=== PATIENT | female | born 1960 | race American Indian/Alaskan Native ===

== ENCOUNTER 2016-07-05 16:09 | Emergency (ER) | payer MEDICAID, OTHER ==
[2016-07-05 17:37] LABS: Anion Gap 20 mmol/L; BUN/Creatinine Ratio 17.14; Blood Urea Nitrogen 12 mg/dL (7-17); Calcium 9.1 mg/dL (8.4-10.2); Carbon Dioxide 25 mmol/L (22-30); Glucose 465 mg/dL (65-100); Potassium 4.1 mmol/L (3.6-5.0); Sodium 137 mmol/L (137-145)
[2016-07-05 17:43] LABS: Basophils % (Auto) 0.4 % (0.0-1.8); Eosinophils % (Auto) 2.4 % (0.0-4.3); Hematocrit 41.3 % (30.3-42.9); Hemoglobin 13.7 gm/dl (10.1-14.3); Mean Corpuscular HGB Conc 33 % (30-34); Mean Corpuscular Hemoglobin 30 pg (28-32); Mean Corpuscular Volume 91 fl (79-97); Platelet Count 269 K/mm3 (140-440); Red Blood Count 4.57 M/mm3 (3.65-5.03); Red Cell Distribution Width 12.7 % (13.2-15.2); White Blood Count 7.9 K/mm3 (4.5-11.0)
[2016-07-05 17:49] LABS: Bilirubin,Urine NEG (Negative); Blood,Urine NEG (Negative); Ketones,Urine NEG (Negative); Leukocyte Esterase,Urine NEG (Negative); Mucus,Urine FEW /HPF; Nitrite,Urine NEG (Negative); Protein,Urine <15 mg/dL mg/dL (Negative); Urobilinogen,Urine < 2.0 mg/dL (<2.0)
[2016-07-05] MEDS ORDERED: NACL 0.9% 1000 ML 1,000 ML IV ONE (21:57)
[2016-07-05] MEDS ORDERED: TYLENOL #3 PO ONE (21:58)
--- NOTE | 2016-07-05 21:58 | Emergency Department Report ---
ED General Adult HPI - General Chief complaint: Wound/Laceration Stated complaint: SPIDER BITE ON RIGHT LEG Time Seen by Provider: 07/05/16 21:47 Source: patient, RN notes reviewed Mode of arrival: Ambulatory Limitations: No Limitations - History of Present Illness Initial comments: Primary care Dr.: Dr. Mansoor Vyas Past medical history: Diabetes, hypertension, neuropathy. This is a 56-year-old female. She is previously unknown to me. She presents to the ER with right anterior perez erythema. This has been present for a day or so. Patient is on day 2 of antibiotics; Bactrim. She indicates she has taken 3 doses. No fevers, chills, chest pain, shortness of breath, nausea, vomiting, diarrhea. Found to be incidentally hyperglycemic in the ER. Laboratory studies indicate hyperglycemia without an anion gap acidosis. Laboratory studies otherwise unremarkable. -: Gradual Location: right, lower extremity Improves with: none Worsens with: none Associated Symptoms: denies: confusion, chest pain, cough, diaphoresis, fever/ chills, headaches, loss of appetite, malaise, nausea/vomiting, shortness of breath, syncope, weakness - Related Data Home Medications Medication Instructions Recorded Confirmed Last Taken HYDROcodone/APAP 7.5-325 [[place] 1 each PO Q6HR PRN 09/08/15 09/08/15 1 Day Ago 7.5/325] Insulin Detemir [Levemir VIAL] 60 unit SQ QHS 09/08/15 09/08/15 1 Day Ago Insulin NPH/Regular [Novolin 70/30] 35 unit SQ BIDDIAB 09/08/15 09/08/15 Unknown Lisinopril/Hydrochlorothiazide 1 tab PO QDAY 09/08/15 09/08/15 1 Day Ago [Zestoretic 20-12.5 mg] Lovastatin [Altoprev] 10 mg PO QPM 09/08/15 09/08/15 1 Day Ago glipiZIDE [Glucotrol] 5 mg PO QDAY 09/08/15 09/08/15 1 Day Ago metFORMIN [Glucophage] 500 mg PO BID 09/08/15 09/08/15 1 Day Ago Allergies Allergy/AdvReac Type Severity Reaction Status Date / Time No Known Allergies Allergy Verified 09/08/15 08:07 ED Review of Systems ROS: Stated complaint: SPIDER BITE ON RIGHT LEG Other details as noted in HPI Constitutional: denies: fever Eyes: denies: vision change ENT: denies: epistaxis Respiratory: denies: cough Cardiovascular: denies: chest pain Gastrointestinal: denies: abdominal pain Genitourinary: as per HPI. denies: dysuria Musculoskeletal: arthralgia Skin: lesions Neurological: denies: weakness Psychiatric: anxiety ED Past Medical Hx - Past Medical History Hx Hypertension: Yes Hx Diabetes: Yes (Insulin dependent) - Surgical History Additional Surgical History: 2 C-sections - Social History Smoking Status: Never Smoker Substance Use Type: None - Medications Home Medications: Home Medications Medication Instructions Recorded Confirmed Last Taken Type HYDROcodone/APAP 7.5-325 [[place] 1 each PO Q6HR PRN 09/08/15 09/08/15 1 Day Ago History 7.5/325] Insulin Detemir [Levemir VIAL] 60 unit SQ QHS 09/08/15 09/08/15 1 Day Ago History Insulin NPH/Regular [Novolin 70/30] 35 unit SQ BIDDIAB 09/08/15 09/08/15 Unknown History Lisinopril/Hydrochlorothiazide 1 tab PO QDAY 09/08/15 09/08/15 1 Day Ago History [Zestoretic 20-12.5 mg] Lovastatin [Altoprev] 10 mg PO QPM 09/08/15 09/08/15 1 Day Ago History glipiZIDE [Glucotrol] 5 mg PO QDAY 09/08/15 09/08/15 1 Day Ago History metFORMIN [Glucophage] 500 mg PO BID 09/08/15 09/08/15 1 Day Ago History ED Physical Exam - General Limitations: No Limitations General appearance: alert, in no apparent distress - Head Head exam: Present: atraumatic, normocephalic - Eye Eye exam: Present: normal appearance, EOMI. Absent: nystagmus - ENT ENT exam: Present: normal exam, normal orophraynx, mucous membranes moist, normal external ear exam - Neck Neck exam: Present: normal inspection, full ROM. Absent: tenderness, meningismus - Respiratory Respiratory exam: Present: normal lung sounds bilaterally. Absent: respiratory distress, wheezes, rales, rhonchi, stridor, chest wall tenderness - Cardiovascular Cardiovascular Exam: Present: regular rate, normal rhythm, normal heart sounds. Absent: bradycardia, tachycardia, irregular rhythm, systolic murmur, diastolic murmur, rubs, gallop - GI/Abdominal GI/Abdominal exam: Present: soft, normal bowel sounds. Absent: distended, tenderness, guarding, rebound, rigid, pulsatile mass - Extremities Exam Extremities exam: Present: full ROM, tenderness (on the right mid anterior perez , there is a small area of skin excoriation, approximately 2 cm, with a 1 cm ring of surrounding erythema. There is no fluctuance, there is induration. There is no streaking. The compartments are soft. 2+ pulses are noted in 4 extremities.), normal capillary refill. Absent: pedal edema, joint swelling, calf tenderness - Back Exam Back exam: Present: normal inspection, full ROM. Absent: tenderness, CVA tenderness (R), CVA tenderness (L), muscle spasm, paraspinal tenderness, vertebral tenderness - Neurological Exam Neurological exam: Present: alert, oriented X3, normal gait, other (Extraocular movements intact. Tongue midline. No facial droop. Facial sensation intact to light touch in the V1, V2, V3 distribution bilaterally. 5 and 5 strength in 4 extremities.. Sensation is intact to light touch in 4 extremities.). Absent : motor sensory deficit - Psychiatric Psychiatric exam: Present: normal affect, normal mood - Skin Skin exam: Present: rash, erythema ED Course Vital Signs 07/05/16 07/05/16 07/05/16 16:33 23:06 23:15 Temperature 98.5 F 98.7 F Pulse Rate 107 H 87 Respiratory 16 18 18 Rate Blood Pressure 141/85 Blood Pressure 160/94 [Left] O2 Sat by Pulse 100 100 Oximetry - Reevaluation(s) Reevaluation #1: 07/05/16 22:48 differential diagnosis: Cellulitis, Patient ordered for IV fluids and insulin. Accu-Chek decreased on its own. Insulin held. Patient suitable for discharge at this time. 07/05/16 23:24 ED Medical Decision Making - Lab Data Result diagrams: 07/05/16 17:05 07/05/16 17:05 Vital Signs 07/05/16 16:33 Temperature 98.5 F Pulse Rate 107 H Respiratory 16 Rate Blood Pressure 141/85 O2 Sat by Pulse 100 Oximetry Lab Results 07/05/16 07/05/16 07/05/16 Range/Units 16:45 17:00 17:05 WBC 7.9 (4.5-11.0) K/mm3 RBC 4.57 (3.65-5.03) M/mm3 Hgb 13.7 (10.1-14.3) gm/dl Hct 41.3 (30.3-42.9) % MCV 91 (79-97) fl MCH 30 (28-32) pg MCHC 33 (30-34) % RDW 12.7 L (13.2-15.2) % Plt Count 269 (140-440) K/mm3 Lymph % (Auto) 26.8 (13.4-35.0) % Amelia % (Auto) 8.8 H (0.0-7.3) % Eos % (Auto) 2.4 (0.0-4.3) % Baso % (Auto) 0.4 (0.0-1.8) % Lymph # 2.1 (1.2-5.4) K/mm3 Amelia # 0.7 (0.0-0.8) K/mm3 Eos # 0.2 (0.0-0.4) K/mm3 Baso # 0.0 (0.0-0.1) K/mm3 Seg Neutrophils % 61.6 (40.0-70.0) % Seg Neutrophils # 4.9 (1.8-7.7) K/mm3 VBG pH (7.320-7.420) Sodium (137-145) mmol/L Potassium (3.6-5.0) mmol/L Chloride (98-107) mmol/L Carbon Dioxide (22-30) mmol/L Anion Gap mmol/L BUN (7-17) mg/dL Creatinine (0.7-1.2) mg/dL Estimated GFR ml/min BUN/Creatinine Ratio % Glucose (65-100) mg/dL POC Glucose > 500 H (70-105) Calcium (8.4-10.2) mg/dL Urine Color Yellow (Yellow) Urine Turbidity Clear (Clear) Urine pH 5.0 (5.0-7.0) Ur Specific [place] 1.028 (1.003-1.030) Urine Protein <15 mg/dl (Negative) mg/dL Urine Glucose (UA) >=500 (Negative) mg/dL Urine Ketones Neg (Negative) mg/dL Urine Blood Neg (Negative) Urine Nitrite Neg (Negative) Urine Bilirubin Neg (Negative) Urine Urobilinogen < 2.0 (<2.0) mg/dL Ur Leukocyte Esterase Neg (Negative) Urine WBC (Auto) 4.0 (0.0-6.0) /HPF Urine RBC (Auto) 3.0 (0.0-6.0) /HPF U Epithel Cells (Auto) 7.0 (0-13.0) /HPF Urine Mucus Few /HPF 07/05/16 07/05/16 Range/Units 17:05 17:05 WBC (4.5-11.0) K/mm3 RBC (3.65-5.03) M/mm3 Hgb (10.1-14.3) gm/dl Hct (30.3-42.9) % MCV (79-97) fl MCH (28-32) pg MCHC (30-34) % RDW (13.2-15.2) % Plt Count (140-440) K/mm3 Lymph % (Auto) (13.4-35.0) % [place] % (Auto) (0.0-7.3) % Eos % (Auto) (0.0-4.3) % Baso % (Auto) (0.0-1.8) % Lymph # (1.2-5.4) K/mm3 Amelia # (0.0-0.8) K/mm3 Eos # (0.0-0.4) K/mm3 Baso # (0.0-0.1) K/mm3 Seg Neutrophils % (40.0-70.0) % Seg Neutrophils # (1.8-7.7) K/mm3 VBG pH 7.370 (7.320-7.420) Sodium 137 (137-145) mmol/L Potassium 4.1 (3.6-5.0) mmol/L Chloride 96.0 L (98-107) mmol/L Carbon Dioxide 25 (22-30) mmol/L Anion Gap 20 mmol/L BUN 12 (7-17) mg/dL Creatinine 0.7 (0.7-1.2) mg/dL Estimated GFR > 60 ml/min BUN/Creatinine Ratio 17.14 % Glucose 465 H (65-100) mg/dL POC Glucose (70-105) Calcium 9.1 (8.4-10.2) mg/dL Urine Color (Yellow) Urine Turbidity (Clear) Urine pH (5.0-7.0) Ur Specific [place] (1.003-1.030) Urine Protein (Negative) mg/dL Urine Glucose (UA) (Negative) mg/dL Urine Ketones (Negative) mg/dL Urine Blood (Negative) Urine Nitrite (Negative) Urine Bilirubin (Negative) Urine Urobilinogen (<2.0) mg/dL Ur Leukocyte Esterase (Negative) Urine WBC (Auto) (0.0-6.0) /HPF Urine RBC (Auto) (0.0-6.0) /HPF U Epithel Cells (Auto) (0-13.0) /HPF Urine Mucus /HPF - Medical Decision Making Differential diagnosis: Cellulitis, incidental hyperglycemia Assessment and plan: 56-year-old female with small area of cellulitis, and hyperglycemia. Laboratory studies not consistent with anion gap acidosis. Would not consider the patient to have treatment failure as she has only received 3 doses of antibiotic therapy. She is on a seven-day course of antibiotics. At this point in time, she does not require incision and drainage. The patient is instructed to continue a diet that adheres to the [place] [employer] diet. She is instructed to continue her current outpatient medications. She can continue outpatient antibiotics. She she will follow up in 3-4 days for a wound check. I will also refer her to the local wound Center. Her tachycardia has resolved at the time of discharge. Critical care attestation.: If time is entered above; I have spent that time in minutes in the direct care of this critically ill patient, excluding procedure time. ED Disposition Clinical Impression: Hyperglycemia, Cellulitis Disposition: DISCHARGED TO HOME OR SELFCARE Is pt being admited?: No Does the pt Need Aspirin: No Condition: Stable Instructions: Cellulitis (ED), Diabetic Hyperglycemia (ED) Additional Instructions: Continue current outpatient medications. Follow up with your medical professional within 3-4 days for a wound recheck. I recommend that you adhere to a diet that is consistent with the [place] [employer] recommendations. Long-term complications of hyperglycemia/elevated blood sugar include stroke, heart attack, disability, paralysis. At this point in time, the right lower extremity skin infection does not require incision and drainage or hospitalization. If you develops worsening redness, streaking, severe pain, fevers, chills, chest pain, shortness of breath, confusion, return to the ER right away. Otherwise, follow-up with your primary care doctor within 3-4 days for wound check. Referrals: SERENA VYAS MD [Primary Care Provider] - 3-5 Days [facility] [Outside] - 3-5 Days
[2016-07-05 23:15] VITALS: BP 160/94
== END 2016-07-06 01:09 | disposition home or self-care (01) ==
LOC: ED 16:09
DX: L03.115 Cellulitis of right lower limb (principal); I10 Essential (primary) hypertension; E11.65 Type 2 diabetes mellitus with hyperglycemia; Z79.4 Long term (current) use of insulin
CPT/HCPCS: 36415; 80048; 81001; 82805; 82962; 85025; 96360; 99284; J7030

== ENCOUNTER 2016-07-15 08:21 | Outpatient (CLI) | payer MEDICAID ==
[2016-07-15] MEDS ORDERED: XYLOCAINE TOPICAL 4% TP ONE ×2 (09:26→10:04)
[2016-07-15] MEDS ORDERED: SANTYL TP ONE (10:13)
[2016-07-15] MEDS ORDERED: SANTYL TP PRN (16:24)
== END 2016-07-15 08:22 | disposition home or self-care (01) ==
LOC: WOUND 08:21
PROVIDERS: ATTEND Internal Medicine
DX: E11.622 Type 2 diabetes mellitus with other skin ulcer (principal); L97.811 Non-pressure chronic ulcer of other part of right lower leg limited to breakdown of skin; E11.40 Type 2 diabetes mellitus with diabetic neuropathy, unspecified; J44.9 Chronic obstructive pulmonary disease, unspecified; K21.0 Gastro-esophageal reflux disease with esophagitis; I10 Essential (primary) hypertension
CPT/HCPCS: 82962; G0463; 99215

== ENCOUNTER 2016-07-22 09:10 | Outpatient (CLI) | payer MEDICAID ==
[2016-07-22] MEDS ORDERED: XYLOCAINE TOPICAL 2% TP ONE (09:29)
[2016-07-22] MEDS ORDERED: XYLOCAINE TOPICAL 2% ONE (09:30)
[2016-07-22] MEDS ORDERED: XYLOCAINE 1% 20 mL ONE (09:51)
[2016-07-22] MEDS ORDERED: SANTYL TP ONE (10:49)
[2016-07-22] MEDS ORDERED: XYLOCAINE 1% 20 mL INFILTRATI ONE (13:45)
== END 2016-07-22 09:11 | disposition home or self-care (01) ==
LOC: WOUND 09:10
PROVIDERS: ATTEND Internal Medicine
DX: E11.622 Type 2 diabetes mellitus with other skin ulcer (principal); L97.811 Non-pressure chronic ulcer of other part of right lower leg limited to breakdown of skin; E11.40 Type 2 diabetes mellitus with diabetic neuropathy, unspecified; K21.0 Gastro-esophageal reflux disease with esophagitis; J44.9 Chronic obstructive pulmonary disease, unspecified; I10 Essential (primary) hypertension

== ENCOUNTER 2016-07-29 09:29 | Outpatient (CLI) | payer MEDICAID ==
[2016-07-29] MEDS ORDERED: XYLOCAINE TOPICAL 4% TP ONE (10:03)
[2016-07-29] MEDS ORDERED: XYLOCAINE 2%/ EPI 1:200,000 INFILTRATI ONE (10:31)
[2016-07-29] MEDS ORDERED: SANTYL TP ONE (10:56)
== END 2016-07-29 09:30 | disposition home or self-care (01) ==
LOC: WOUND 09:29
PROVIDERS: ATTEND Internal Medicine
DX: E11.622 Type 2 diabetes mellitus with other skin ulcer (principal); L97.811 Non-pressure chronic ulcer of other part of right lower leg limited to breakdown of skin; E11.40 Type 2 diabetes mellitus with diabetic neuropathy, unspecified; K21.0 Gastro-esophageal reflux disease with esophagitis; J44.9 Chronic obstructive pulmonary disease, unspecified; I10 Essential (primary) hypertension

== ENCOUNTER 2016-08-05 09:34 | Outpatient (CLI) | payer MEDICAID ==
[2016-08-05] MEDS ORDERED: XYLOCAINE TOPICAL 4% TP ONE (10:45)
[2016-08-05] MEDS ORDERED: SANTYL TP ONE ×2 (11:12→11:21)
== END 2016-08-05 09:35 | disposition home or self-care (01) ==
LOC: WOUND 09:34
PROVIDERS: ATTEND Internal Medicine
DX: E11.622 Type 2 diabetes mellitus with other skin ulcer (principal); L97.811 Non-pressure chronic ulcer of other part of right lower leg limited to breakdown of skin; E11.40 Type 2 diabetes mellitus with diabetic neuropathy, unspecified; K21.0 Gastro-esophageal reflux disease with esophagitis; J44.9 Chronic obstructive pulmonary disease, unspecified; I10 Essential (primary) hypertension
CPT/HCPCS: 99214; G0463

== ENCOUNTER 2016-08-12 13:00 | Outpatient (CLI) | payer MEDICAID ==
[2016-08-12] MEDS ORDERED: XYLOCAINE TOPICAL 4% TP ONE ×2 (13:22→13:41)
[2016-08-12] MEDS ORDERED: SANTYL TP ONE ×2 (14:19→14:33)
== END 2016-08-12 13:01 | disposition home or self-care (01) ==
LOC: WOUND 13:00
PROVIDERS: ATTEND Internal Medicine
DX: E11.622 Type 2 diabetes mellitus with other skin ulcer (principal); L97.811 Non-pressure chronic ulcer of other part of right lower leg limited to breakdown of skin; K21.0 Gastro-esophageal reflux disease with esophagitis; E11.40 Type 2 diabetes mellitus with diabetic neuropathy, unspecified; J44.9 Chronic obstructive pulmonary disease, unspecified; I10 Essential (primary) hypertension; Z72.89 Other problems related to lifestyle

== ENCOUNTER 2016-08-19 09:18 | Outpatient (CLI) | payer MEDICAID ==
[2016-08-19] MEDS ORDERED: XYLOCAINE TOPICAL 2% TP ONE ×2 (09:57→11:00)
[2016-08-19] MEDS ORDERED: XYLOCAINE TOPICAL 4% TP ONE ×2 (09:59→11:00)
[2016-08-19] MEDS ORDERED: SANTYL TP ONE ×2 (10:33→16:47)
== END 2016-08-19 09:19 | disposition home or self-care (01) ==
LOC: WOUND 09:18
PROVIDERS: ATTEND Internal Medicine
DX: E11.622 Type 2 diabetes mellitus with other skin ulcer (principal); L97.811 Non-pressure chronic ulcer of other part of right lower leg limited to breakdown of skin; K21.0 Gastro-esophageal reflux disease with esophagitis; E11.40 Type 2 diabetes mellitus with diabetic neuropathy, unspecified; J44.9 Chronic obstructive pulmonary disease, unspecified; I10 Essential (primary) hypertension; Z72.89 Other problems related to lifestyle